=== PATIENT | male | born 1950 | race Two or more races ===

== ENCOUNTER 2017-08-09 20:08 | Emergency (ER) | payer OTHER ==
[~2017-08-09] VITALS: Ht 188 cm; Wt 158.8 kg
[2017-08-09] MEDS ORDERED: COZAAR25 MG (20:26)
[2017-08-09] MEDS ORDERED: METFORMIN HCL500 MG (20:26)
== END 2017-08-09 22:42 | disposition home or self-care (01) ==
LOC: ER 20:08
DX: K80.20 Calculus of gallbladder without cholecystitis without obstruction (principal)

== ENCOUNTER 2017-12-03 20:27 | Emergency (ER) | payer OTHER ==
[~2017-12-03] VITALS: Ht 175.3 cm; Wt 126.6 kg
[~2017-12-03 20:27] MED LIST: COZAAR25 MG; METFORMIN HCL500 MG
== END 2017-12-04 07:33 | disposition home or self-care (01) ==
LOC: ER 20:27
DX: R10.84 Generalized abdominal pain (principal)

== ENCOUNTER 2018-01-01 13:36 | Inpatient (IN) | payer OTHER ==
[~2018-01-01] VITALS: Ht 175.3 cm; Wt 124.7 kg
[2018-01-01] MEDS ORDERED: OMEPRAZOLE40 MG (13:45)
[2018-01-03] MEDS ORDERED: CIPRO500 MG PO (14:25)
[2018-01-03] MEDS ORDERED: ZANTAC300 MG PO (14:26)
[2018-01-03] MEDS ORDERED: SURFAK240 M1 PO (14:27)
== END 2018-01-03 16:22 | disposition home or self-care (01) | DRG 355 ==
LOC: ER 13:36 → SEC-K 19:37 → SURH 19:37
PROVIDERS: Surgery
PROC: BW24ZZZ Computerized Tomography (CT Scan) of Chest and Abdomen (ICD-10-PCS; 2018-01-01)
PROC: 0WQF0ZZ Repair Abdominal Wall, Open Approach (ICD-10-PCS; principal; 2018-01-01 21:00)
DX: K42.0 Umbilical hernia with obstruction, without gangrene (principal); I10 Essential (primary) hypertension; E66.01 Morbid (severe) obesity due to excess calories; K80.80 Other cholelithiasis without obstruction